=== PATIENT | female | born 2000 | race Hispanic/Latino ===

== ENCOUNTER 2020-02-22 20:52 | Emergency (ER) | payer MEDICAID, OTHER ==
[2020-02-22] MEDS ORDERED: ACETAMINOPHEN 325 MG TAB ONE (21:12)
== END 2020-02-22 22:05 | disposition home or self-care (01) ==
LOC: EDH 20:52
DX: S90.211A Contusion of right great toe with damage to nail, initial encounter (principal); W23.0XXA Caught, crushed, jammed, or pinched between moving objects, initial encounter; Y93.89 Activity, other specified; Y92.89 Other specified places as the place of occurrence of the external cause; Y99.8 Other external cause status
CPT/HCPCS: 73660